=== PATIENT | male | born 1955 | race Caucasian/White ===

== ENCOUNTER → 2016-07-18 | Outpatient (CLI) | payer BC ==
--- NOTE | 2016-07-18 10:55 | DI ---
PA /LATERAL CHEST X-RAY, 07/18/2016 9:49 AM : Clinical History: Cough. Previous Exam: 01/07/2014. There is no acute soft tissue or bony abnormality. Heart size is normal. Lungs are clear. Mediastinal structures are normal. There are no pulmonary nodules. Reading: Normal chest x-ray. There has been no interval change.
== END ==
LOC: MOB RAD 09:50
PROVIDERS: ATTEND Physician Assistant
DX: R05 Cough (principal); F17.200 Nicotine dependence, unspecified, uncomplicated
CPT/HCPCS: 71020

== ENCOUNTER → 2016-08-28 | Outpatient (CLI) | payer BC ==
--- NOTE | 2016-08-28 12:16 | DI ---
AP PELVIS and RIGHT HIP, 08/28/2016 11:49 AM: Clinical History: Right hip pain. Previous Exam: None at this facility. There is no soft tissue abnormality. In the right iliac weighing, there is a 10 x 12 mm lucent lesion with an irregular sclerotic margin. The remainder of the bony pelvis is normal. 2 views of the right hip are normal. Readin. Normal right hip exam. 2. There is a 10 x 12 mm lucent lesion in the right iliac wing with an irregular and thickened scler otic margin. A CT scan of the pelvis without IV contrast is recommended for further evaluation.
== END ==
LOC: MOB RAD 11:52
PROVIDERS: ATTEND Physician Assistant
DX: M25.551 Pain in right hip (principal)
CPT/HCPCS: 73502

== ENCOUNTER → 2016-08-30 | Outpatient (CLI) | payer BC ==
--- NOTE | 2016-08-31 23:09 | DI ---
CT PELVIS SCAN WITHOUT IV CONTRAST, 08/30/2016 8:38 AM : Clinical History: Abnormal plain films of the pelvis revealing a lytic lesion of the right iliac wing . Previous Exam: None at this facility. Scans are performed from just superior to the umbilicus to the symphysis pubis without IV contrast. Sagittal and coronal images are generated. Scans through the lower abdomen and pelvis show no masses or abnormal fluid collections. There is no adenopathy. The appendix is normal. No hernias are identified. Scans of the right iliac wing show the previously identified lucent lesion seen on the plain films. T his lesion has a "bubbly bone" appearance that is typical of benign lesions. The inner table of the r ight iliac wing is expanded by the lesion but the cortex is still intact. Posteriorly, there is no ex pansion of the outer cortex and the cortex is again intact. This may represent a simple bone cyst or a focus of fibrous dysplasia. Scans through the right hip show that there is asphericity of the femor al head that was not appreciated on the plain films. There is also a small bony fragment along the an terosuperior and lateral margin of the acetabulum. This patient may have femoroacetabular impingement secondary to a cam type mechanism with resultant labral tear. If further evaluation is required, the n an MRI scan of the right hip with intra-articular contrast and intra-articular anesthetic would be recommended. With the intra-articular local anesthetic, resolution of the patient's symptoms would in dicate the hip joint as the origin of the patient's pain, particularly if there is a labral tear iden tified. READIN. There is a 10 mm "bubbly bone" benign-appearing lesion of the right iliac wing corresponding to t he lucency seen on the plain films of the pelvis. This most likely represents either a small bone cys t or fibrous dysplasia. 2. 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 Consider an MRI scan with intra-audie cular contrast and local anesthetic if further evaluation of the patient's hip symptoms is required.
== END ==
LOC: CT 08:35
PROVIDERS: ATTEND Physician Assistant
DX: M89.8X8 Other specified disorders of bone, other site (principal); M25.851 Other specified joint disorders, right hip
CPT/HCPCS: 72192

== ENCOUNTER → 2016-09-19 | Outpatient (CLI) | payer BC ==
--- NOTE | 2016-09-19 17:06 | DI ---
MRI LOW EXTREMITY JNT W/CN,09/19/2016 1:26 PM: Clinical History: Right hip pain with a cystic area in the right iliac bone. Previous Exam: CT pelvis from August 30, 2016 Findings: Multiple MR images are obtained through the right hip following the intra-articular administration of dilute gadolinium contrast. Bony alignment is anatomic and no fractures are seen. There is a small 6 mm area of increased T2 sign al signal corresponding with the lesion seen on the right iliac bone. This demonstrates isointense si gnal on T1 weighted images. The right hip is grossly normal. There is some contrast noted within the musculature of the iliopsoas muscle. There is no abnormal marrow signal. There are no labral tears. There is some mild thinning of the articular cartilage of the right acetab ulum without full-thickness defects nor evidence of cartilage delamination. The right acetabular labrum is unremarkable. Adjacent vascular structures are unremarkable. Impression: 1. Normal right hip joint. 2. 6 mm right iliac cyst. 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
--- NOTE | 2016-09-20 09:01 | DI ---
XR INJECTION PROCEDURE HIP,09/19/2016 1:28 PM: Clinical History: Right hip pain Previous Exam: None at this facility. Procedure: Risks, benefits and alternatives were explained to the patient and informed written consen t was obtained. The right hip was prepped and draped in usual sterile fashion and 1% lidocaine used for local anesthe manuel. A spinal needle was then advanced into the right hip joint and 15cc of a dilute gadolinium contrast m edium injected. Findings: There is some extrusion of contrast into the psoas muscle. The right joint space is preserved. Impression: Successful right hip arthrogram. MRI pending.
== END ==
LOC: MRI 13:22
PROVIDERS: ATTEND Orthopaedic Surgery
DX: S73.191A Other sprain of right hip, initial encounter (principal); M25.551 Pain in right hip; M85.68 Other cyst of bone, other site
CPT/HCPCS: 27093; 73722; A9579

== ENCOUNTER 2016-09-26 07:17 | Day surgery (SDC) | payer BC ==
[~2016-09-26 07:17] MED LIST: BETAMET ACET/BETAMET NA PH 6 MG/1 ML - 5 ML ONE; Iopamidol Inj 61% 50 ML VIAL ONE; LIDOCAINE MPF 2% - 5 ML (20 MG/1 ML) ONE; LIDOCAINE W/ SODIUM BICARB 0.5 ML SYR ONE; ROPIVACAINE HCL 7.5 MG/1 ML - 20 ML ONE; Ropivacaine 0.2% VIAL 0 ML ONE
[2016-09-26 08:32] VITALS: RESP 18
== END 2016-09-26 07:55 | disposition home or self-care (01) ==
LOC: SDSC 07:17
PROVIDERS: ATTEND Orthopaedic Surgery
DX: M16.11 Unilateral primary osteoarthritis, right hip (principal)
CPT/HCPCS: 20610; 76000; J0702; J2001; J2795

== ENCOUNTER → 2016-10-13 | Outpatient (CLI) | payer BC ==
--- NOTE | 2016-10-13 16:36 | DI ---
History: Right low back pain right hip pain Comparison: None Findings: Conus medullaris is normal in position at the level of T11-12: Posterior disc bulge impressing slightly upon the thecal sac. No stenosis or foraminal narrow ing. T12-L1: No stenosis or foraminal narrowing. L1-2: No stenosis or foraminal narrowing L2-3, to the level of L5-S1. L2-3: Loss of intervertebral disc space height. Sclerotic degenerative c hanges in the endplates. Broad-based posterior disc bulge. Mild to moderate hypertrophic degenerative changes in facet joints. Ligamentous hypertrophy. These changes result in mild bilateral neural fora helena narrowing, and moderate focal spinal stenosis. L3-4: mild posterior disc bulge impressing slightly upon the thecal sac. Mild degenerative changes in facet joints, and mild ligamentous height hypertrophy. There is very mild subsequent focal spinal st enosis. L4-5: Mild posterior disc bulge. Mild degenerative changes in facet joints. Moderate ligamentous hype rtrophy. Subsequent mild to moderate focal spinal stenosis, and mild bilateral neural foramina narrow ing. L5-S1: Posterior disc bulge. Mild degenerative changes of facet joints and images. No stenosis or for aminal narrowing Impression: Varying degrees of neural foraminal narrowing spinal stenosis secondary to degenerative changes, from the level of L2-3, to the level of L4-5. Spinal stenosis is most severe at the level of L2 where there is loss of intervertebral disc space he ight, and sclerotic degenerative endplate changes. No focal disc herniation .
== END ==
LOC: RAD 15:25
PROVIDERS: ATTEND Chiropractor
DX: M54.5 Low back pain (principal); M25.551 Pain in right hip; M47.816 Spondylosis without myelopathy or radiculopathy, lumbar region; M48.06 Spinal stenosis, lumbar region
CPT/HCPCS: 72148